=== PATIENT | male | born 1930 | race Caucasian/White ===

== ENCOUNTER 2018-10-29 12:17 | Outpatient (CLI) | payer MEDICARE, OTHER ==
--- NOTE | 2018-10-30 06:48 | Diagnostic Imaging Report ---
JANIS CULP [facility] [id number] [facility] [address] [place] [address]. [phone] Report Submission Date: Oct 29, 2018 1:25:41 PM CDT Patient Study Name: BRADEN RIDER Date: Oct 29, 2018 12:27:52 PM CDT Modality Type: US Gender: M Description: US PELVIS LIMITED/BLADDER/F/U : 32 Institution: [facility] Physician: JANIS CULP Exam: Pelvic ultrasound. History: Evaluate for post void residual. Real-time grayscale imaging of the urinary bladder is performed. The prevoid volume of the urinary bladder is 344 mL. No shar intrinsic filling defect within the urinary bladder is identified. The postvoid volume of the urinary bladder is 195 mL. Impression: Significant postvoid residual noted within the urinary bladder. Electronically signed on Oct 29, 2018 1:25:41 PM CDT by: Kris CONTE
== END 2018-10-29 12:35 ==
LOC: RAD 12:17
PROVIDERS: ATTEND Family Medicine
DX: N40.0 Benign prostatic hyperplasia without lower urinary tract symptoms (principal); N39.0 Urinary tract infection, site not specified; R39.198 Other difficulties with micturition
CPT/HCPCS: 76857